=== PATIENT | male | born 1975 | race Caucasian/White ===

== ENCOUNTER 2017-09-04 13:01 | Emergency (ER) | payer OTHER ==
[2017-09-04 13:10] VITALS: TEMP 97.8
[2017-09-04] MEDS ORDERED: IPRATROPIUM-ALBUTEROL 3 ML NEB INHALATION STA (13:57)
--- NOTE | 2017-09-04 14:04 | ED ---
General Adult HPI - General Chief complaint: Upper Respiratory Infection Stated complaint: SOB Time Seen by Provider: 09/04/17 13:10 Source: patient, RN notes reviewed Mode of arrival: ambulatory Limitations: no limitations - History of Present Illness Initial comments: This a 41-year-old male who is a smoker comes into the emergency department today complaining of a cough and some sputum production and shortness of breath. Patient states it started couple days ago and it appears to be getting slightly worse. Patient denies any chest pain or palpitations. Patient denies any fever though he has felt warm. Patient denies any abdominal pain patient denies any nausea vomiting diarrhea. Patient denies any swelling to legs or calf pain. - Related Data Previous Rx's Medication Instructions Recorded Albuterol Inhaler [Ventolin Hfa 1 - 2 puff INHALATION Q6HR PRN #2 09/04/17 Inhaler] puff Azithromycin [Zithromax Tri-Vipin] 500 mg PO DAILY #3 tab 09/04/17 Allergies Allergy/AdvReac Type Severity Reaction Status Date / Time No Known Allergies Allergy Verified 09/04/17 13:38 Review of Systems ROS Statement: Those systems with pertinent positive or pertinent negative responses have been documented in the HPI. ROS Other: All systems not noted in ROS Statement are negative. Past Medical History Past Medical History: Diabetes Mellitus, Hyperlipidemia, Hypertension History of Any Multi-Drug Resistant Organisms: MRSA Date of last positivie culture/infection: 02/09/2015 MDRO Source:: Neck Past Surgical History: Hernia Repair Past Psychological History: No Psychological Hx Reported Smoking Status: Current every day smoker Past Alcohol Use History: Rare Past Drug Use History: None Reported General Exam - General Exam Comments Initial Comments: GENERAL: Patient is well-developed and well-nourished. Patient is nontoxic and well- hydrated and is in mild distress. ENT: Neck is soft and supple. No significant lymphadenopathy is noted. Oropharynx is clear. Moist mucous membranes. Neck has full range of motion without eliciting any pain. EYES: The sclera were anicteric and conjunctiva were pink and moist. Extraocular movements were intact and pupils were equal round and reactive to light. Eyelids were unremarkable. PULMONARY: Patient has some expiratory wheezing. CARDIOVASCULAR: There is a regular rate and rhythm without any murmurs gallops or rubs. ABDOMEN: Soft and nontender with normal bowel sounds. No palpable organomegaly was noted. There is no palpable pulsatile mass. SKIN: Skin is clear with no lesions or rashes and otherwise unremarkable. NEUROLOGIC: Patient is alert and oriented x3. Cranial nerves II through XII are grossly intact. Motor and sensory are also intact. Normal speech, volume and content. Symmetrical smile. MUSCULOSKELETAL: Normal extremities with adequate strength and full range of motion. No lower extremity swelling or edema. No calf tenderness. LYMPHATICS: No significant lymphadenopathy is noted PSYCHIATRIC: Normal psychiatric evaluation. Normal interpersonal interactions appears functionally intact in deals appropriately with others. No signs of depression. No signs of anxiety. Limitations: no limitations Course Vital Signs 09/04/17 09/04/17 09/04/17 13:09 13:29 13:31 Temperature 97.8 F Pulse Rate 80 89 Respiratory 18 22 22 Rate Blood Pressure 174/97 O2 Sat by Pulse 97 100 Oximetry 09/04/17 09/04/17 14:05 14:13 Temperature Pulse Rate 88 88 Respiratory Rate Blood Pressure O2 Sat by Pulse Oximetry Medical Decision Making - Medical Decision Making Chest x-ray showed no acute abnormality I gave the patient an albuterol and Atrovent treatment patient felt better and was much more clear after the treatment. Disposition Clinical Impression: Bronchitis Disposition: HOME SELF-CARE Condition: Good Instructions: Acute Bronchitis (ED) Prescriptions: Albuterol Inhaler [Ventolin Hfa Inhaler] 1 - 2 puff INHALATION Q6HR PRN #2 puff PRN Reason: Difficulty breathing Azithromycin [Zithromax Tri-Vipin] 500 mg PO DAILY #3 tab Referrals: Angelito Burgos DO [Primary Care Provider] - 1-2 days Time of Disposition: 14:59
--- NOTE | 2017-09-04 14:55 | XR ---
EXAMINATION TYPE: XR chest 2V DATE OF EXAM: 09/04/2017 COMPARISON: 12/07/2010 HISTORY: Shortness of breath for 2 days. TECHNIQUE: Frontal and lateral views of the chest are obtained. FINDINGS: There is no focal air space opacity, pleural effusion, or pneumothorax seen. The cardiac silhouette size is within normal limits. The osseous structures are intact. Minimal multilevel dege nerative changes of thoracic spine are noted. IMPRESSION: No acute cardiopulmonary process.
[2017-09-04 15:11] VITALS: BP 172/88; PULSE 78; RESP 18
== END 2017-09-04 15:00 | disposition home or self-care (01) ==
LOC: EC 13:01
DX: J40 Bronchitis, not specified as acute or chronic (principal); F17.200 Nicotine dependence, unspecified, uncomplicated; Z86.14 Personal history of Methicillin resistant Staphylococcus aureus infection
CPT/HCPCS: 71020; 94640; 99283

== ENCOUNTER 2018-02-05 13:59 | Emergency (ER) | payer OTHER ==
--- NOTE | 2018-02-05 14:41 | ED ---
General Adult HPI - General Chief complaint: Recheck/Abnormal Lab/Rx Stated complaint: Poss Hernia Time Seen by Provider: 02/05/18 14:35 Source: patient, family Mode of arrival: ambulatory Limitations: no limitations - History of Present Illness Initial comments: Patient presents for pain in the inguinal regions bilaterally. Patient states this occurs intermittently over the past 1 month. States worse when sitting down, improves with standing up. Patient states he feels "a bulge" which he is able to "push down". Patient denies testicular pain or swelling. Patient denies lesions, rash in the inguinal region. Denies any urinary symptoms including dysuria or penile discharge. Patient states she's had a vasectomy in the past, no other genital or abdominal surgeries. - Related Data Home Medications Medication Instructions Recorded Confirmed Lisinopril 20 - 40 mg PO DAILY 02/05/18 02/05/18 metFORMIN HCL [Glucophage] 1,000 mg PO BID 02/05/18 02/05/18 Allergies Allergy/AdvReac Type Severity Reaction Status Date / Time No Known Allergies Allergy Verified 02/05/18 14:43 Review of Systems ROS Statement: Those systems with pertinent positive or pertinent negative responses have been documented in the HPI. ROS Other: All systems not noted in ROS Statement are negative. Constitutional: Denies: fever, chills Eyes: Denies: vision change ENT: Denies: throat pain, congestion Respiratory: Denies: dyspnea Cardiovascular: Denies: chest pain Endocrine: Denies: fatigue Gastrointestinal: Denies: abdominal pain, nausea, vomiting, diarrhea, constipation Genitourinary: Reports: other (Inguinal pain). Denies: urgency, dysuria, frequency, hematuria, discharge Skin: Denies: rash, change in color Neurological: Denies: weakness, numbness Past Medical History Past Medical History: Diabetes Mellitus, Hyperlipidemia, Hypertension History of Any Multi-Drug Resistant Organisms: MRSA Date of last positivie culture/infection: 02/09/2015 MDRO Source:: Neck Past Surgical History: Hernia Repair Past Psychological History: No Psychological Hx Reported Smoking Status: Current every day smoker Past Alcohol Use History: Rare Past Drug Use History: None Reported General Exam - General Exam Comments Initial Comments: Sitting up on side of bed. Conversing normally. Calm, pleasant. Not appear in pain. Well-appearing. Limitations: no limitations General appearance: alert, in no apparent distress Head exam: Present: atraumatic, normocephalic Eye exam: Present: normal appearance, PERRL, EOMI ENT exam: Present: normal exam, mucous membranes moist Neck exam: Present: normal inspection Respiratory exam: Present: normal lung sounds bilaterally. Absent: respiratory distress, wheezes, rales Cardiovascular Exam: Present: regular rate, normal rhythm GI/Abdominal exam: Present: soft, normal bowel sounds. Absent: distended, tenderness, guarding, rebound, rigid, mass, pulsatile mass exam: Present: circumcision, other (No testicular masses appreciated. No skin changes of the scrotum or penis or other lesions appreciated. ). Absent: testicular tenderness, urethral discharge Course Vital Signs 02/05/18 14:28 Temperature 98.4 F Pulse Rate 110 H Respiratory 20 Rate Blood Pressure 184/92 O2 Sat by Pulse 98 Oximetry Medical Decision Making - Medical Decision Making Urinalysis showed no signs of infection. Ultrasound shows no signs of testicular torsion, good flow to both testicles. Shows small hydrocele. Patient's symptoms consistent with hydrocele, pain resolved at this time. Discussed rest, avoid prolonged standing, follow-up with urologist. For referral to urologist given. Return to ER immediately if new or worsening symptoms including increased testicular pain, swelling. Patient agrees to take Motrin and Tylenol for pain at home. - Lab Data Lab Results 02/05/18 Range/Units 14:55 Urine Color Yellow Urine Appearance Clear (Clear) Urine pH 5.5 (5.0-8.0) Ur Specific [place] 1.020 (1.001-1.035) Urine Protein Trace H (Negative) Urine Glucose (UA) 3+ H (Negative) Urine Ketones Negative (Negative) Urine Blood Negative (Negative) Urine Nitrite Negative (Negative) Urine Bilirubin Negative (Negative) Urine Urobilinogen <2.0 (<2.0) mg/dL Ur Leukocyte Esterase Negative (Negative) Disposition Clinical Impression: Hydrocele in adult Disposition: HOME SELF-CARE Condition: Good Instructions: Hydrocele (ED) Additional Instructions: Return to ER for new or worsening symptoms. Follow-up with urologist in one to 2 days. Is patient prescribed a controlled substance at d/c from ED?: No Referrals: Angelito Burgos DO [Primary Care Provider] - 1-2 days Micth Haley MD [STAFF PHYSICIAN] - 1-2 days
[2018-02-05 15:07] LABS: Appearance,Urine Clear (Clear); Bilirubin,Urine Negative (Negative); Blood,Urine Negative (Negative); Color,Urine Yellow; Glucose,Urine (UA) 3+ (Negative); Ketones,Urine Negative (Negative); Leukocyte Esterase,Urine Negative (Negative); Nitrite,Urine Negative (Negative); PH, Urine 5.5 (5.0-8.0); Protein,Urine Trace (Negative); Urobilinogen,Urine <2.0 mg/dL (<2.0)
--- NOTE | 2018-02-05 15:32 | US ---
EXAMINATION TYPE: US scrotum with doppler. Grayscale and color Doppler Duplex imaging performed of yeyo lawrence scrotum. DATE OF EXAM: 02/05/2018 COMPARISON: NONE CLINICAL HISTORY: Pain. Patient feels movement from right testicle to left testicle in the last few m onths, no known injury, patient said he did lift something heavy a few months ago EXAM MEASUREMENTS: TESTICLES: Right Testicle: 3.3 x 1.6 x 2.2 cm Left Testicle: 3.5 x 2.4 x 2.2 cm EPIDIDYMIS HEAD: Right Epididymis: 0.8 cm Left Epididymis: 1.3 cm Doppler performed to assess for testicular vascularity; good bilateral color flow and waveforms are s een. There is no evidence of testicular torsion. Presence of hydroceles: very mild fluid on the left Presence of varicoceles: no No obvious hernia seen within inguinal canals at patients complaint. Single punctate calcifications seen bilaterally although these do not fit criteria sonographically fo r microlithiasis. IMPRESSION: No current sonographic evidence of testicular torsion. No sonographic evidence of inguina l hernia. Trace left hydrocele appears simple.
[2018-02-05 16:08] VITALS: BP 161/99; PULSE 94; RESP 18; TEMP 98.1
== END 2018-02-05 16:05 | disposition home or self-care (01) ==
LOC: EC 13:59
DX: N43.3 Hydrocele, unspecified (principal); I10 Essential (primary) hypertension; E11.9 Type 2 diabetes mellitus without complications; F17.200 Nicotine dependence, unspecified, uncomplicated; Z79.84 Long term (current) use of oral hypoglycemic drugs; Z79.899 Other long term (current) drug therapy; Z86.14 Personal history of Methicillin resistant Staphylococcus aureus infection; Z98.52 Vasectomy status; Z98.890 Other specified postprocedural states
CPT/HCPCS: 76870; 81003; 93975; 99284

== ENCOUNTER 2019-02-05 15:09 | Emergency (ER) | payer OTHER ==
[2019-02-05 15:16] VITALS: BP 148/84; PULSE 85; RESP 18; TEMP 98
[2019-02-05] MEDS ORDERED: methylPREDNISolone SOD SUCCI 125 MG/2 ML VIAL IM ONE (15:28)
--- NOTE | 2019-02-05 15:31 | ED ---
Skin/Abscess/FB HPI - General Chief complaint: Skin/Abscess/Foreign Body Stated complaint: poison marilou Time Seen by Provider: 02/05/19 15:19 Source: patient, RN notes reviewed Mode of arrival: ambulatory Limitations: no limitations - History of Present Illness Initial comments: 43-year-old male presents emergency Department with chief complaint of poison marilou. 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 Patient states that it's. She nature states she's had this in the past. Denies any difficulty breathing no new products no contacts with similar rash. - Related Data Home Medications Medication Instructions Recorded Confirmed Lisinopril 20 - 40 mg PO DAILY 02/05/18 02/05/18 metFORMIN HCL [Glucophage] 1,000 mg PO BID 02/05/18 02/05/18 Previous Rx's Medication Instructions Recorded predniSONE 50 mg PO DAILY #5 tab 02/05/19 Allergies Allergy/AdvReac Type Severity Reaction Status Date / Time No Known Allergies Allergy Verified 02/05/18 14:43 Review of Systems ROS Statement: Those systems with pertinent positive or pertinent negative responses have been documented in the HPI. ROS Other: All systems not noted in ROS Statement are negative. Past Medical History Past Medical History: Diabetes Mellitus, Hyperlipidemia, Hypertension History of Any Multi-Drug Resistant Organisms: MRSA Date of last positivie culture/infection: 02/09/2015 MDRO Source:: Neck Past Surgical History: Hernia Repair Past Psychological History: No Psychological Hx Reported Smoking Status: Current every day smoker Past Alcohol Use History: Rare Past Drug Use History: None Reported General Exam Limitations: no limitations General appearance: alert, in no apparent distress Head exam: Present: atraumatic, normocephalic, normal inspection Eye exam: Present: normal appearance, PERRL, EOMI. Absent: scleral icterus, conjunctival injection, periorbital swelling ENT exam: Present: normal exam, normal oropharynx, mucous membranes moist, TM's normal bilaterally Neck exam: Present: normal inspection. Absent: tenderness, meningismus, lymphadenopathy Respiratory exam: Present: normal lung sounds bilaterally. Absent: respiratory distress, wheezes, rales, rhonchi, stridor Cardiovascular Exam: Present: regular rate, normal rhythm, normal heart sounds. Absent: systolic murmur, diastolic murmur, rubs, gallop, clicks Skin exam: Present: warm, dry, intact, normal color, rash Course Vital Signs 02/05/19 15:14 Temperature 98.0 F Pulse Rate 85 Respiratory 18 Rate Blood Pressure 148/84 O2 Sat by Pulse 97 Oximetry Medical Decision Making - Medical Decision Making 43-year-old male presents emergency department for rash. He does have some scattered papules which may be from contact dermatitis. Patient will be given site Medrol. Patient discharged and oral steroids return parameters were discussed. Disposition Clinical Impression: Contact dermatitis Disposition: HOME SELF-CARE Condition: Stable Instructions (If sedation given, give patient instructions): Poison Marilou (ED) Additional Instructions: Please return to the Emergency Department if symptoms worsen or any other concerns. Prescriptions: predniSONE 50 mg PO DAILY #5 tab Is patient prescribed a controlled substance at d/c from ED?: No Referrals: Angelito Burgos DO [Primary Care Provider] - 1-2 days Time of Disposition: 15:30
== END 2019-02-05 15:45 | disposition home or self-care (01) ==
LOC: EC 15:09
DX: L23.7 Allergic contact dermatitis due to plants, except food (principal); F17.200 Nicotine dependence, unspecified, uncomplicated; I10 Essential (primary) hypertension; E11.9 Type 2 diabetes mellitus without complications; Z79.84 Long term (current) use of oral hypoglycemic drugs; Z79.899 Other long term (current) drug therapy; Z86.14 Personal history of Methicillin resistant Staphylococcus aureus infection
CPT/HCPCS: 99282; 96372; J2930

== ENCOUNTER 2019-04-24 22:36 | Emergency (ER) | payer OTHER ==
[2019-04-24 22:50] VITALS: BP 148/80; PULSE 98; RESP 16; TEMP 98.6
--- NOTE | 2019-04-24 23:04 | ED ---
Upper Extremity HPI - General Chief Complaint: Extremity Injury, Upper Stated Complaint: rt arm swelling Time Seen by Provider: 04/24/19 22:54 Source: patient Mode of arrival: ambulatory Limitations: no limitations - History of Present Illness Initial Comments: This patient is a 43-year-old man who presents with complaint of right elbow pain. He states she has been getting this intermittently for about the past 6 months since he lifted a heavy engine. He states that yesterday he was moving things around his garage and then noticed the pain was coming back today. He indicates the lateral aspect of the right elbow. The patient states there was not a direct blow to the arm. He is not having weakness or numbness. The pain is moderate, aching and worse with moving his arm. No real relieving factors. MD Complaint: Injury to:: right, elbow -: hour(s) Other Extremity Injury: Elbow: Right Other Injuries: none Handedness: right Place: home Improves With: none Worsens With: movement of extremity Context: other Associated Symptoms: denies other symptoms - Related Data Previous Rx's Medication Instructions Recorded Ibuprofen 800 mg PO TID #20 tablet 04/24/19 Allergies Allergy/AdvReac Type Severity Reaction Status Date / Time No Known Allergies Allergy Verified 04/24/19 22:54 Review of Systems ROS Statement: Those systems with pertinent positive or pertinent negative responses have been documented in the HPI. ROS Other: All systems not noted in ROS Statement are negative. Constitutional: Denies: fever, weakness Musculoskeletal: Reports: as per HPI, joint swelling, arthralgia Neurological: Denies: weakness, numbness, paresthesias Past Medical History Past Medical History: Diabetes Mellitus, Hyperlipidemia, Hypertension History of Any Multi-Drug Resistant Organisms: MRSA Date of last positivie culture/infection: 02/09/2015 MDRO Source:: Neck Past Surgical History: Hernia Repair Past Psychological History: No Psychological Hx Reported Smoking Status: Current every day smoker Past Alcohol Use History: Rare Past Drug Use History: None Reported General Exam Limitations: no limitations General appearance: alert, in no apparent distress Cardiovascular Exam: Present: other (Radial and ulnar pulses strong and symmetric to the bilateral upper extremities. Capillary refill normal) Extremities exam: Present: normal capillary refill Right Shoulder Exam: Present: normal inspection, full ROM. Absent: tenderness Upper Arm exam: Present: normal inspection, full ROM. Absent: tenderness Elbow exam: Present: normal inspection, full ROM, tenderness, tenderness over radial head. Absent: abrasion, laceration, ecchymosis, deformity, crepitus, dislocation, erythema, effusion, other Forearm Wrist exam: Present: normal inspection, full ROM. Absent: tenderness, swelling, abrasion, laceration, ecchymosis, deformity Hand Wrist exam: Present: normal inspection, full ROM. Absent: tenderness, swelling, abrasion, laceration, ecchymosis, deformity, crepitus, dislocation, erythema, amputation, nail avulsion, subungual hematoma Neuro motor exam: Present: wrist extension intact, thumb opposition intact Neurosensory exam: Present: radial nerve intact, ulnar nerve intact, median nerve intact Vascular: Present: normal capillary refill. Absent: vascular compromise, Pallo Neurological exam: Absent: motor sensory deficit (No deficits throughout the right upper extremity) Skin exam: Present: warm, dry, intact, normal color. Absent: rash Course Vital Signs 04/24/19 22:48 Temperature 98.6 F Pulse Rate 98 Respiratory 16 Rate Blood Pressure 148/80 O2 Sat by Pulse 99 Oximetry Disposition Clinical Impression: Elbow strain Disposition: HOME SELF-CARE Condition: Good Instructions (If sedation given, give patient instructions): Elbow Sprain (ED) Prescriptions: Ibuprofen 800 mg PO TID #20 tablet Is patient prescribed a controlled substance at d/c from ED?: No Referrals: None,Stated [Primary Care Provider] - 1-2 days
--- NOTE | 2019-04-24 23:18 | XR ---
EXAM: XR Right Elbow Complete, 3 or More Views CLINICAL HISTORY: ITS.REASON XR Reason: Pain TECHNIQUE: Frontal, lateral and oblique views of the right elbow. COMPARISON: No relevant prior studies available. FINDINGS: Bones/joints: Unremarkable. No acute fracture. No dislocation. Soft tissues: Unremarkable. IMPRESSION: Normal right elbow x-rays.
== END 2019-04-25 00:04 | disposition home or self-care (01) ==
LOC: EC 22:36
DX: S46.811A Strain of other muscles, fascia and tendons at shoulder and upper arm level, right arm, initial encounter (principal); F17.200 Nicotine dependence, unspecified, uncomplicated; Z86.14 Personal history of Methicillin resistant Staphylococcus aureus infection; X50.0XXA Overexertion from strenuous movement or load, initial encounter; Y93.89 Activity, other specified; Y92.009 Unspecified place in unspecified non-institutional (private) residence as the place of occurrence of the external cause
CPT/HCPCS: 99283

== ENCOUNTER 2019-10-17 08:29 | Emergency (ER) | payer BC ==
[2019-10-17 08:35] VITALS: RESP 18
--- NOTE | 2019-10-17 09:16 | ED ---
Lower Extremity Injury HPI - General Chief Complaint: Extremity Injury, Lower Stated Complaint: swollen left foot Time Seen by Provider: 10/17/19 08:59 Source: patient, RN notes reviewed, old records reviewed Mode of arrival: ambulatory Limitations: no limitations - History of Present Illness Initial Comments: Patient is a 43-year-old male who presents to the emergency department today for evaluation of her left foot and heel pain. Symptoms started 4 days ago. He reports he's had some swelling, and pain with walking over the left heel. Patient reports that symptoms started after running and some heavy boots. Patient states that he did have some pain going up into his calf. Patient reports he so some bruising over the medial malleolus. Patient denies any history of blood clots. He denies any chest pain or shortness of breath. - Related Data Previous Rx's Medication Instructions Recorded Ibuprofen 800 mg PO TID #20 tablet 04/24/19 Ibuprofen [Motrin] 600 mg PO Q8HR PRN #20 tab 10/17/19 Allergies Allergy/AdvReac Type Severity Reaction Status Date / Time No Known Allergies Allergy Verified 04/24/19 22:54 Review of Systems ROS Statement: Those systems with pertinent positive or pertinent negative responses have been documented in the HPI. ROS Other: All systems not noted in ROS Statement are negative. Past Medical History Past Medical History: Diabetes Mellitus, Hyperlipidemia, Hypertension History of Any Multi-Drug Resistant Organisms: MRSA Date of last positivie culture/infection: 02/09/2015 MDRO Source:: Neck Past Surgical History: Hernia Repair Past Psychological History: No Psychological Hx Reported Smoking Status: Current every day smoker Past Alcohol Use History: Rare Past Drug Use History: None Reported General Exam Limitations: no limitations General appearance: alert, in no apparent distress Head exam: Present: atraumatic Eye exam: Present: normal appearance, PERRL, EOMI. Absent: scleral icterus, conjunctival injection, periorbital swelling ENT exam: Present: normal exam, mucous membranes moist Neck exam: Present: normal inspection Respiratory exam: Present: normal lung sounds bilaterally. Absent: respiratory distress, wheezes, rales, rhonchi, stridor Cardiovascular Exam: Present: regular rate, normal rhythm, normal heart sounds. Absent: systolic murmur, diastolic murmur, rubs, gallop, clicks GI/Abdominal exam: Present: soft, normal bowel sounds. Absent: distended, tenderness, guarding, rebound, rigid Extremities exam: Present: normal inspection Left Knee exam: Present: normal inspection, full ROM Lower Leg exam: Present: normal inspection, full ROM Ankle exam: Present: normal inspection, full ROM Foot/Toe exam: Present: tenderness (over achilles and talus), swelling (over ankle) Neurovascular tendon exam: Present: no vascular compromise Gait: observed and normal Back exam: Present: normal inspection Neurological exam: Present: alert, oriented X3, CN II-XII intact Psychiatric exam: Present: normal affect, normal mood Skin exam: Present: warm, dry, intact, normal color. Absent: rash Course Vital Signs 10/17/19 10/17/19 08:32 10:56 Temperature 97.8 F 97.6 F Pulse Rate 98 93 Respiratory 18 18 Rate Blood Pressure 148/96 152/96 O2 Sat by Pulse 99 97 Oximetry Medical Decision Making - Medical Decision Making 43 year old male with CC of left foot and ankle pain. Patient has tenderness over talus. Xray shows achilles heel spur. US is negative for DVT. Discussed patient has emilee's tendintitis. Discussed Ice and elevation. Discussed return parameters. - Radiology Data Radiology results: report reviewed US is negative for DVT in leftleg.Foot and ankle xray show no acute fracture or dislocation. Small achilles heel spur. Disposition Clinical Impression: Heel spur, Achilles tendinitis Disposition: HOME SELF-CARE Instructions (If sedation given, give patient instructions): Achilles Tendinitis (ED), Heel Spur (ED) Additional Instructions: Is advised to rest, Patient came in with crutches. Recommended putting ice over that he'll the foot and stretching the foot. Recommended follow-up with orthopedic or truck headlight assembler. Prescriptions: Ibuprofen [Motrin] 600 mg PO Q8HR PRN #20 tab PRN Reason: Pain Is patient prescribed a controlled substance at d/c from ED?: No Referrals: Fletcher Sarmiento DO [Primary Care Provider] - 1-2 days Fletcher Toussaint DPM [STAFF PHYSICIAN] - 1-2 days Faraz Alvarez MD [Medical Doctor] - 1-2 days Time of Disposition: 10:42
--- NOTE | 2019-10-17 09:39 | XR ---
EXAMINATION TYPE: XR ankle complete LT, XR foot complete LT DATE OF EXAM: 10/17/2019 CLINICAL HISTORY: Left hip pain for 4 days no known injury. TECHNIQUE: Frontal, lateral and oblique images of the left ankle and foot are obtained. COMPARISON: None. FINDINGS: There is no acute fracture/dislocation evident in the left ankle. The ankle mortise appea rs within normal limits. The overlying soft tissue appears unremarkable. There is no acute fracture or dislocation evident in the left foot. The joint spaces in the left foot are preserved. There is a small Achilles heel spur. Overlying soft tissue is unremarkable. IMPRESSION: 1. No acute fracture or dislocation in the left ankle or foot. 2. Small Achilles heel spur.
--- NOTE | 2019-10-17 10:03 | US ---
EXAMINATION TYPE: US venous doppler duplex LE LT DATE OF EXAM: 10/17/2019 9:46 AM COMPARISON: NONE CLINICAL HISTORY: swelling, pain. Ankle swelling. No injury. No redness. No leg swelling. No hx D VT. Not on blood thinners. SIDE PERFORMED: Left TECHNIQUE: The lower extremity deep venous system is examined utilizing real time linear array sonog roslyn with graded compression, doppler sonography and color-flow sonography. VESSELS IMAGED: External Iliac Vein (EIV) Common Femoral Vein Deep Femoral Vein Greater Saphenous Vein * Femoral Vein Popliteal Vein Small Saphenous Vein * Proximal Calf Veins (* superficial vessels) Grayscale, color doppler, spectral doppler imaging performed of the deep veins of the left lower extr emity. There is normal flow, compressibility, vascular waveforms. Left Leg: Negative for DVT IMPRESSION: No sonographic evidence of deep venous thrombosis within the left lower extremity.
[2019-10-17] MEDS ORDERED: KETOROLAC 60 MG/2 ML VIAL IM STA (10:42)
[2019-10-17 10:57] VITALS: BP 152/96; PULSE 93; TEMP 97.6
== END 2019-10-17 10:56 | disposition home or self-care (01) ==
LOC: EC 08:29
DX: M76.62 Achilles tendinitis, left leg (principal); M77.32 Calcaneal spur, left foot; E11.9 Type 2 diabetes mellitus without complications; I10 Essential (primary) hypertension; F17.200 Nicotine dependence, unspecified, uncomplicated
CPT/HCPCS: 73610; 73630; 93971; 99284; 96372; J1885

== ENCOUNTER 2020-11-11 22:55 | Emergency (ER) | payer BC ==
[2020-11-11 23:02] VITALS: BP 104/68; TEMP 98.1
[2020-11-12] MEDS ORDERED: SODIUM CHLORIDE 0.9% 500 ML 500 ML IV ONE (00:10)
[2020-11-12] MEDS ORDERED: SODIUM CHLORIDE 0.9% 1,000 ML IV ONE (00:10)
[2020-11-12] MEDS ORDERED: SODIUM CHLORIDE 0.9% 1,000 ML IV SCH (00:15)
[2020-11-12 00:44] LABS: Basophils % (A) 0 %; Eosinophils # (A) 0.5 k/uL (0-0.7); Eosinophils % (A) 5 %; HGB 15.7 gm/dL (13.0-17.5); Lymphocytes # (A) 2.3 k/uL (1.0-4.8); Lymphocytes % (A) 23 %; MCHC 34.1 g/dL (31.0-37.0); MCV 84.9 fL (80.0-100.0); Mean Platelet Volume 8.9; Monocytes # (A) 0.5 k/uL (0-1.0); Monocytes % (A) 5 %; Neutrophils # (A) 6.6 k/uL (1.3-7.7); Neutrophils % (A) 66 %; Platelet Count 229 k/uL (150-450); RBC 5.42 m/uL (4.30-5.90); RDW 12.4 % (11.5-15.5)
[2020-11-12 01:01] LABS: Appearance,Urine Cloudy (Clear); Bacteria,Urine Occasional /hpf; Bilirubin,Urine Negative (Negative); Blood,Urine Negative (Negative); Color,Urine Yellow; Glucose,Urine (UA) Trace (Negative); Hyaline Casts,Urine 102 /lpf (0-2); Ketones,Urine Negative (Negative); Leukocyte Esterase,Urine Negative (Negative); Mucus,Urine Many /hpf; Nitrite,Urine Negative (Negative); Protein,Urine 1+ (Negative); RBC,Urine 4 /hpf (0-5); Specific Gravity,Urine 1.025 (1.001-1.035); Squamous Epithelial Cell,Urine 6 /hpf (0-4); Uric Acid Crystals,Urine Occasional /hpf; Urobilinogen,Urine <2.0 mg/dL (<2.0); WBC,Urine 8 /hpf (0-5)
[2020-11-12 01:19] LABS: ALT 21 U/L (4-49); AST 20 U/L (17-59); African American GFR (CKD) >90 (>60 ml/min/1.73 sqM); Alkaline Phosphatase 62 U/L (38-126); Anion Gap 11 mmol/L; Blood Urea Nitrogen 37 mg/dL (9-20); Calcium 8.8 mg/dL (8.4-10.2); Carbon Dioxide 26 mmol/L (22-30); Chloride 95 mmol/L (98-107); Glucose 198 mg/dL (74-99); Lipase 44 U/L (23-300); Non-African American GFR(CKD) 81 (>60 ml/min/1.73 sqM); Potassium 3.7 mmol/L (3.5-5.1); Sodium 132 mmol/L (137-145); Total Bilirubin 0.7 mg/dL (0.2-1.3); Total Protein 6.7 g/dL (6.3-8.2)
[2020-11-12 01:29] LABS: Amylase <30 U/L (30-110)
--- NOTE | 2020-11-12 02:02 | ED ---
Abdominal Pain HPI - General Chief Complaint: Abdominal Pain Stated Complaint: Abd Pain Time Seen by Provider: 11/11/20 23:19 Source: patient Mode of arrival: ambulatory Limitations: no limitations - History of Present Illness Initial Comments: 45-year-old male presenting today for chief complaint of abdominal pain nausea vomiting. Patient states that he has had nausea and vomiting since Thursday. He states that it has persisted until today he states this morning he woke up and attempted to go to work however the symptoms returned. Patient states he is diffuse mostly mid abdominal pain. He denies localized upper abdomen pain or localized lower abdominal pain. He denies a chest pain shortness of breath he states his sugars usually run high is not sure if this is related. He denies urgency frequency hematuria dysuria. Patient denies any fevers. Patient denies cough congestion. Denies constipation. Admits to some loose stools. Remaining review systems negative upon arrival patient appears well nontoxic distress - Related Data Home Medications Medication Instructions Recorded Confirmed Atorvastatin [Lipitor] 20 mg PO DAILY 05/29/20 05/29/20 Canagliflozin [Invokana] 100 mg PO DAILY 05/29/20 05/29/20 Sildenafil Citrate [Viagra] 100 mg PO DAILY PRN 05/29/20 05/29/20 Previous Rx's Medication Instructions Recorded Chlorthalidone [Hygroton] 25 mg PO DAILY #0 05/30/20 Insulin Detemir (Levemir) [Levemir] 20 unit SQ DAILY@0700 #1 syr 05/30/20 Nicotine 21Mg/24Hr Patch [Habitrol] 1 patch TRANSDERM DAILY #30 patch 05/30/20 Omeprazole 20 mg PO DAILY #30 tablet. 05/30/20 glipiZIDE [Glucotrol] 10 mg PO AC-BID #60 tablet 05/30/20 Allergies Allergy/AdvReac Type Severity Reaction Status Date / Time No Known Allergies Allergy Verified 11/11/20 23:02 Review of Systems ROS Statement: Those systems with pertinent positive or pertinent negative responses have been documented in the HPI. ROS Other: All systems not noted in ROS Statement are negative. Past Medical History Past Medical History: Diabetes Mellitus, Hyperlipidemia, Hypertension History of Any Multi-Drug Resistant Organisms: MRSA Date of last positivie culture/infection: 02/09/2015 MDRO Source:: Neck Past Surgical History: Hernia Repair Past Anesthesia/Blood Transfusion Reactions: No Reported Reaction Past Psychological History: No Psychological Hx Reported Smoking Status: Current every day smoker Past Alcohol Use History: Rare Past Drug Use History: None Reported General Exam - General Exam Comments Initial Comments: General: The patient is awake and alert, in no distress Eye: +3 mm pupils are equal, round and reactive to light, extra-ocular movements are intact. No nystagmus. There is normal conjunctiva bilaterally. No signs of icterus. Ears, nose, mouth and throat: There are moist mucous membranes and no oral lesions. Neck: The neck is supple, there is no tenderness or JVD. Cardiovascular: There is a regular rate and rhythm. No murmur, rub or gallop is appreciated. Respiratory: Lungs are clear to auscultation, respirations are non-labored, breath sounds are equal. No wheezes, stridor, rales, or rhonchi. Gastrointestinal: Soft, non-distended, diffuse mid abdomen tenderness/center, abdomen without masses or organomegaly noted. There is no rebound or guarding present. Musculoskeletal: Normal ROM, no tenderness. Strength 5/5. Sensation intact. Radial pulses equal bilaterally 2+. Neurological: A&O x 3. CN II-XII intact grossly, There are no obvious motor or sensory deficits. Coordination appears grossly intact. Speech is normal. Skin: Skin is warm and dry and no rashes or lesions are noted. Psychiatric: Cooperative, appropriate mood & affect, normal judgment. Limitations: no limitations Course Vital Signs 11/11/20 11/12/20 22:59 02:09 Temperature 98.1 F Pulse Rate 123 H 98 Respiratory 18 16 Rate Blood Pressure 104/68 O2 Sat by Pulse 98 98 Oximetry Medical Decision Making - Medical Decision Making CT consistent with enterocolitis. Nose no significant leukocytosis patient appears nontoxic. Pain improved patient hydrated. Glucose elevated without ketones. gap 11. At this time I recommend patient continue oral hydration. Monitor symptoms. Return for worsening pain or uncontrolled vomiting diarrhea/fevers. She verbalizes understanding is agreeable to discharge and care plan at this time as is attending Dr. Phan - Lab Data Result diagrams: 11/12/20 00:01 11/12/20 00:01 Lab Results 11/12/20 11/12/20 11/12/20 Range/Units 00:01 00:01 00:01 WBC 10.0 (3.8-10.6) k/uL RBC 5.42 (4.30-5.90) m/uL Hgb 15.7 (13.0-17.5) gm/dL Hct 46.0 (39.0-53.0) % MCV 84.9 (80.0-100.0) fL MCH 29.0 (25.0-35.0) pg MCHC 34.1 (31.0-37.0) g/dL RDW 12.4 (11.5-15.5) % Plt Count 229 (150-450) k/uL MPV 8.9 Neutrophils % 66 % Lymphocytes % 23 % Monocytes % 5 % Eosinophils % 5 % Basophils % 0 % Neutrophils # 6.6 (1.3-7.7) k/uL Lymphocytes # 2.3 (1.0-4.8) k/uL Monocytes # 0.5 (0-1.0) k/uL Eosinophils # 0.5 (0-0.7) k/uL Basophils # 0.0 (0-0.2) k/uL Sodium 132 L (137-145) mmol/L Potassium 3.7 (3.5-5.1) mmol/L Chloride 95 L (98-107) mmol/L Carbon Dioxide 26 (22-30) mmol/L Anion Gap 11 mmol/L BUN 37 H (9-20) mg/dL Creatinine 1.11 (0.66-1.25) mg/dL Est GFR (CKD-EPI)AfAm >90 (>60 ml/min/1.73 sqM) Est GFR (CKD-EPI)NonAf 81 (>60 ml/min/1.73 sqM) Glucose 198 H (74-99) mg/dL Calcium 8.8 (8.4-10.2) mg/dL Total Bilirubin 0.7 (0.2-1.3) mg/dL AST 20 (17-59) U/L ALT 21 (4-49) U/L Alkaline Phosphatase 62 (38-126) U/L Total Protein 6.7 (6.3-8.2) g/dL Albumin 4.0 (3.5-5.0) g/dL Amylase <30 L (30-110) U/L Lipase 44 (23-300) U/L Urine Color Yellow Urine Appearance Cloudy (Clear) Urine pH 5.0 (5.0-8.0) Ur Specific [place] 1.025 (1.001-1.035) Urine Protein 1+ H (Negative) Urine Glucose (UA) Trace H (Negative) Urine Ketones Negative (Negative) Urine Blood Negative (Negative) Urine Nitrite Negative (Negative) Urine Bilirubin Negative (Negative) Urine Urobilinogen <2.0 (<2.0) mg/dL Ur Leukocyte Esterase Negative (Negative) Urine RBC 4 (0-5) /hpf Urine WBC 8 H (0-5) /hpf Ur Squamous Epith Cells 6 H (0-4) /hpf Uric Acid Crystals Occasional H (None) /hpf Urine Bacteria Occasional H (None) /hpf Hyaline Casts 102 H (0-2) /lpf Urine Mucus Many H (None) /hpf Disposition Clinical Impression: Enterocolitis, Nausea & vomiting Disposition: HOME SELF-CARE Condition: Good Instructions (If sedation given, give patient instructions): Acute Nausea and Vomiting (ED) Additional Instructions: Please use medication as discussed. Please follow-up with family doctor in the next 2 days. Please return to emergency room if the symptoms increase or worsen or for any other concerns. Is patient prescribed a controlled substance at d/c from ED?: No Referrals: Fletcher Sarmiento DO [Primary Care Provider] - 1-2 days Time of Disposition: 02:24
--- NOTE | 2020-11-12 02:06 | CT ---
EXAM: CT Abdomen and Pelvis With Intravenous Contrast CLINICAL HISTORY: ITS.REASON CT Reason: abdominal pain TECHNIQUE: Axial computed tomography images of the abdomen and pelvis with intravenous contrast. CTDI is 32.17 mGy and DLP is 1463 mGy-cm. This CT exam was performed using one or more of the following dose reduction techniques: automated exposure control, adjustment of the mA and/or kV according to patient size, and/or use of iterative reconstruction technique. COMPARISON: No relevant prior studies available. FINDINGS: Lung bases: Unremarkable. No mass. No consolidation. ABDOMEN: Liver: Unremarkable. No mass. Gallbladder and bile ducts: Unremarkable. No calcified stones. No ductal dilation. Pancreas: Unremarkable. No mass. No ductal dilation. Spleen: Unremarkable. No splenomegaly. Adrenals: Unremarkable. No mass. Kidneys and ureters: Unremarkable. No solid mass. No hydronephrosis. Delayed phase imaging through the kidneys demonstrates normal excreted contrast in the renal collecting systems and proximal ureters. Stomach and bowel: There is recurrent fluid distention of several small bowel loops throughout the abdomen and pelvis without a definitive focal transition point. There is mild stool in the colon with slightly prominent fluid throughout the ascending, transverse and descending colon. The sigmoid colon is predominantly decompressed. Stomach is moderately distended with retained fluid and oral contents but is not dilated. No gastric mucosal thickening identified. PELVIS: Appendix: A normal caliber appendix is noted medial to the cecum in the right lower quadrant. Bladder: Unremarkable. No mass. Reproductive: Unremarkable as visualized. ABDOMEN and PELVIS: Intraperitoneal space: Unremarkable. No free air. No significant fluid collection. Bones/joints: No acute fracture. No dislocation. Soft tissues: Unremarkable. Vasculature: Unremarkable. No abdominal aortic aneurysm. Lymph nodes: Similar mesenteric fat stranding and nonspecific mesenteric lymph nodes. IMPRESSION: 1. There is recurrent fluid distention of several small bowel loops throughout the abdomen and pelvis without a definitive focal transition point. There is mild stool in the colon with slightly prominent fluid throughout the ascending, transverse and descending colon. The sigmoid colon is predominantly decompressed. Findings again suggest inflammatory or infectious enterocolitis. No pneumatosis or pneumoperitoneum. No free intraperitoneal fluid. Normal caliber appendix. 2. Similar mesenteric fat stranding and nonspecific mesenteric lymph nodes. Suspect recurrent reactive changes from the small bowel process.
[2020-11-12 02:09] VITALS: PULSE 98; RESP 16
== END 2020-11-12 02:29 | disposition home or self-care (01) ==
LOC: EC 22:55
DX: K52.9 Noninfective gastroenteritis and colitis, unspecified (principal); E11.9 Type 2 diabetes mellitus without complications; I10 Essential (primary) hypertension; E78.5 Hyperlipidemia, unspecified; F17.200 Nicotine dependence, unspecified, uncomplicated; Z79.4 Long term (current) use of insulin; Z79.899 Other long term (current) drug therapy; Z86.14 Personal history of Methicillin resistant Staphylococcus aureus infection; Z98.890 Other specified postprocedural states
CPT/HCPCS: 36415; 80053; 82150; 83690; 85025; 81001; 83036; 74177; Q9967; 96360; 96361; 99285